=== PATIENT | female | born 1985 | race African-American/Black ===

== ENCOUNTER 2021-09-09 09:47 | Day surgery (SDC) | payer OTHER, SELFPAY ==
[2021-09-09] VITALS (7 sets, daily range): BP systolic 97–125; BP diastolic 68–87; PULSE 61–78; RESP 14–18; TEMP 36.3–37.2; O2SAT 97–100; BMI 24.4
[2021-09-09 09:31] LABS: SARS PCR* Negative SARS-CoV-2 (Negative)
[2021-09-09] MEDS: LACTATED RINGERS 1000 ML 1,000 ML 35 ML IV (10:00)
[2021-09-09 10:37] LABS: HCG Qualitative* Negative (Negative)
[2021-09-09] MEDS: KETOROLAC 15 MG/ML inj IVP (12:10)
--- NOTE | 2021-09-09 12:24 | PC.NURSE ---
ACCORDING TO TRUECLEAR INFOW WAS 1405 ML AND OUTFLOW 220 ML
--- NOTE | 2021-09-09 12:30 | W.ANESCHARGE ---
Anesthesia Charges Start Date/Time Anesthesia Start Date: 09/09/21 Anesthesia Start Time: 11:38 Stop Date/Time Anesthesia Stop Date: 09/09/21 Anesthesia Stop Time: 12:26 Summary Emergency: No
--- NOTE | 2021-09-09 12:31 | W.PM.GYNPROC ---
Procedure Note Date Seen: 09/09/21 Procedure Details: PREOPERATIVE DIAGNOSIS: Suspected endometrial polyp POSTOPERATIVE DIAGNOSIS: endometrial polyps PROCEDURE: hysteroscopy, polypectomy, dilation and curettage SURGEON: Patricia Galaviz MD ANESTHESIA: monitored anesthesia care, paracervical block IV FLUIDS: 700 mL crystalloid URINE OUTPUT: approximately 10 mL EBL: 5 mL SALINE DEFICIT: 220 mL FINDINGS: 1. On exam under anesthesia, uterus is retroverted, mobile, of normal size and texture. There were no palpable adnexal masses. 2. Upon hysteroscopy, survey of the endocervix was unremarkable. Survey of the endometrial cavity revealed 2 endometrial polyps, each approximately 1 cm in greatest dimension. One was along the posterior uterine cavity, and the other along the anterior left uterine cavity. The endometrial cavity was normal in shape. The endometrium appeared to be a normal thickness. COMPLICATIONS: none PROCEDURE IN DETAIL: Patient was taken to the operating room with IV running. She was positioned in dorsal lithotomy position with her legs fully supported in Yellofin stirrups. Monitored anesthesia care was administered. She was prepped and draped in the usual sterile fashion. Exam under anesthesia was performed for the above-noted findings. Speculum was inserted. Cervix visualized and grasped along the anterior lip with a single-tooth tenaculum. Cervix was serially dilated to accommodate the TRUCLEAR hysteroscope. This was assembled with saline inflow and outflow in place. The line was flushed of bubbles. The hysteroscope was advanced through the cervix into the endometrial cavity for the above noted findings. The tissue morcellator was then inserted through the operating channel. Window lock was performed. Under direct visualization, the endometrial cavity was circumferentially curetted with the tissue morcellator. The hysteroscope and morcellator were then removed from the uterus. Tenaculum was removed from the anterior lip of cervix. Hemostasis was noted. Patient tolerated procedure well. She was taken to recovery area in stable condition.
--- NOTE | 2021-09-09 13:12 | W.ANESCHARGE ---
Anesthesia Charges Start Date/Time Anesthesia Start Date: 09/09/21 Anesthesia Start Time: 11:38 Stop Date/Time Anesthesia Stop Date: 09/09/21 Anesthesia Stop Time: 12:26 Summary Emergency: No
== END 2021-09-09 14:10 | disposition home or self-care (01) ==
PROVIDERS: Anesthesiology; Visit Provider Obstetrics & Gynecology
PROC: 0UDB8ZZ Extraction of Endometrium, Via Natural or Artificial Opening Endoscopic (ICD-10-PCS; CPT 58558; principal; 2021-09-09 10:45)
DX: N84.0 Polyp of corpus uteri (principal)
CPT/HCPCS: 58558; 00944; 00952; 36415; 84703; 86850; 86900; 86901; 87635; 88305; J1885; J2250; J2704; J3010; J7120